=== PATIENT | female | born 1960 | race Caucasian/White ===

== ENCOUNTER 2022-03-14 11:26 | Emergency (ER) | payer SELFPAY ==
--- NOTE | 2022-03-14 11:53 | ER ---
Nurse's Notes [facility] Name: Mirna Mejia Age: 61 yrs Sex: Female : 1960 Arrival Date: 03/14/2022 Time: 11:29 Bed 20 Private MD: Diagnosis: Glossitis Presentation: 03/14 11:40 Chief complaint: Patient states: Tip of tongue is tender/painful, outer lining of lips jl7 with pain and burning x 1.5 weeks, itchy rash all over body x 1 week. Coronavirus screen: At this time, the client does not indicate any symptoms associated with coronavirus-19. Ebola Screen: No symptoms or risks identified at this time. Initial Sepsis Screen: Does the patient meet any 2 criteria? No. Patient's initial sepsis screen is negative. Does the patient have a suspected source of infection? No. Patient's initial sepsis screen is negative. Risk Assessment: Do you want to hurt yourself or someone else? Patient reports no desire to harm self or others. Onset of symptoms is unknown. 11:40 Method Of Arrival: Ambulatory [facility] 11:40 Acuity: RADHA 4 jl7 Triage Assessment: 11:42 General: Appears in no apparent distress. uncomfortable, Behavior is calm, cooperative, jl7 appropriate for age. Pain: Complains of pain in tongue, upper cory border and lower cory border Pain currently is 2 out of 10 on a pain scale. Historical: - Allergies: 11:42 No Known Allergies; jl7 - Home Meds: 11:42 None [Active]; jl7 - PMHx: 11:42 None; jl7 - PSHx: 11:42 None; jl7 - Immunization history:: Client reports having NOT received the Covid vaccine. - Social history:: Smoking status: Patient denies any tobacco usage or history of. Screenin:54 Abuse screen: Denies threats or abuse. Denies injuries from another. Nutritional jg9 screening: No deficits noted. Tuberculosis screening: No symptoms or risk factors identified. Fall Risk None identified. Assessment: 11:54 Reassessment: No changes from previously documented assessment. jg9 Vital Signs: 11:40 BP 140 / 58; Pulse 78; Resp 17; Temp 99; Pulse Ox 100% on R/A; Height 5 ft. 5 in. jl7 (165.10 cm); Pain 2/10; 12:15 BP 138 / 62; Pulse 80; Resp 17 S; Pulse Ox 97% on R/A; Pain 3/10; jg9 ED Course: 11:29 Patient arrived in ED. mr 11:30 Henrry Merida MD is Attending Physician. jr11 11:42 Triage completed. jl7 11:42 Arm band placed on right wrist. jl7 11:44 Janeth Hudson, RN is Primary Nurse. jg9 11:54 Patient has correct armband on for positive identification. Bed in low position. Call jg9 light in reach. Side rails up X 1. 11:54 No provider procedures requiring assistance completed. jg9 12:30 Patient did not have IV access during this emergency room visit. jg9 Administered Medications: No medications were administered Medication: 11:54 VIS not applicable for this client. jg9 Outcome: 11:52 Discharge ordered by . jr11 11:54 Condition: unchanged jg9 12:29 Discharged to home ambulatory. jg9 12:29 Discharge instructions given to patient, Instructed on discharge instructions, follow up and referral plans. Demonstrated understanding of instructions, follow-up care, Prescriptions given X 1. 12:30 Patient left the ED. jg9 Signatures: Brigitte Juares mr HuangSurekha RN RN jl7 Janeth Hudson, RN RN jg9 Henrry Merida MD MD jr11
--- NOTE | 2022-03-14 11:53 | EDPHYS ---
Physician Documentation [facility] Name: Mirna Mejia Age: 61 yrs Sex: Female : 1960 Arrival Date: 03/14/2022 Time: :29 Bed 20 Private MD: ED Physician Henrry Merida HPI: 03/14 12:01 This 61 yrs old Female presents to ER via Ambulatory with complaints of Rash on tongue jr11 and lips. 12:01 rash to tongue . Onset: The symptoms/episode began/occurred today. Severity of jr11 symptoms: At their worst the symptoms were mild in the emergency department the symptoms are worse. Denies rash in her body . No modifying factors. Historical: - Allergies: 11:42 No Known Allergies; jl7 - Home Meds: 11:42 None [Active]; jl7 - PMHx: 11:42 None; jl7 - PSHx: 11:42 None; jl7 - Immunization history:: Client reports having NOT received the Covid vaccine. - Social history:: Smoking status: Patient denies any tobacco usage or history of. ROS: 12:01 All other systems are negative. jr11 Exam: 12:01 Constitutional: This is a well developed, well nourished patient who is awake, alert, jr11 and in no acute distress. Head/Face: Normocephalic, atraumatic. ENT: slight irritation of tongue papilla, no white patches, no edema, +OP drip Neck: Trachea midline, no thyromegaly or masses palpated, and no cervical lymphadenopathy. Supple, full range of motion without nuchal rigidity, or vertebral point tenderness. No Meningismus. Chest/axilla: Normal chest wall appearance and motion. Nontender with no deformity. No lesions are appreciated. Cardiovascular: Regular rate and rhythm with a normal S1 and S2. No gallops, murmurs, or rubs. Normal PMI, no JVD. No pulse deficits. Respiratory: Lungs have equal breath sounds bilaterally, clear to auscultation and percussion. No rales, rhonchi or wheezes noted. No increased work of breathing, no retractions or nasal flaring. Abdomen/GI: Soft, non-tender, with normal bowel sounds. No distension or tympany. No guarding or rebound. No evidence of tenderness throughout. Skin: Warm, dry with normal turgor. Normal color with no rashes, no lesions, and no evidence of cellulitis. Vital Signs: 11:40 BP 140 / 58; Pulse 78; Resp 17; Temp 99; Pulse Ox 100% on R/A; Height 5 ft. 5 in. jl7 (165.10 cm); Pain 2/10; 12:15 BP 138 / 62; Pulse 80; Resp 17 S; Pulse Ox 97% on R/A; Pain 3/10; jg9 MDM: 11:51 Patient medically screened. jr11 12:01 Differential Diagnosis glossitis . Data reviewed: vital signs, nurses notes. ED course: jr11 will do chloxhex, f/u PCP 3 days if not better . Administered Medications: No medications were administered Disposition Summary: 03/14/22 11:52 Discharge Ordered Location: Home [facility] Condition: Stable [facility] Diagnosis - Glossitis jr11 Discharge Instructions: - Discharge Summary Sheet jr11 - Glossitis [facility] Forms: - Medication Reconciliation Form jr11 - Thank You Letter jr11 - Antibiotic Education jr11 - Prescription Opioid Use jr11 Prescriptions: - chlorhexidine gluconate 0.12 % Mucous Membrane mouthwash - place 15 milliliter by MUCOUS MEMBRANE route 2 times per day after brushing jr11 teeth, swish in mouth for 30 seconds then spit out; 1 bottle; Refills: 0, Product Selection Permitted Signatures: Surekha Huang RN RN jl7 Henrry Merida MD MD jr11
[2022-03-14 12:41] VITALS: TEMP 99
[2022-03-14 12:43] VITALS: BP 138/62; O2SAT 97
== END 2022-03-14 12:30 | disposition home or self-care (01) ==
LOC: ER 11:26
DX: K14.0 Glossitis (principal)
CPT/HCPCS: 99282